=== PATIENT | female | born 1995 | race Caucasian/White ===

== ENCOUNTER 2018-07-21 08:39 | Emergency (ER) | payer SELFPAY ==
[2018-07-21 08:57] VITALS: BP 109/78; PULSE 119; TEMP 98.7; BMI 24.2
--- NOTE | 2018-07-21 09:30 | PDOC ---
History of Present Illness - General Chief Complaint: Psychiatric Stated Complaint: PSYCHIATRIC Time Seen by Provider: 07/21/18 09:01 - History of Present Illness Initial Comments: Venus Ryan is a 23yo woman with a PMH of depression who was brought to the ED by her family for continued symptoms of depression. They report that they are concerned because she has not been eating or sleeping well and does not want to go out. They would like her to start seeing a psychologist or psychiatrist. Per Venus, interviewed via kier operator phone, she was previously diagnosed with depression and given medication. She took the meds initially, but they made her feel hyper and she stopped taking them. She did not follow up with her psychiatrist nor inform him about the side effects. Her family report that there was a period of time over the summer when she was "crazy" and going out frequently, drinking excessively; Venus endorses this as well. She does not remember how long the episode lasted. Venus reports previous attempt to harm herself with excess drinking but denies any active intent to harm herself, suicidal ideation, or intent to harm others. She reports that she is interested in receiving treatment but currently lives in [place] and is only here visiting family. Past History - Past Medical History Allergies/Adverse Reactions: Allergies Allergy/AdvReac Type Severity Reaction Status Date / Time No Known Allergies Allergy Verified 07/21/18 08:48 CVA: No COPD: No Psychiatric Problems: Yes (anxiety and depression) - Immunization History Immunization Up to Date: Yes - Suicide/Smoking/Psychosocial Hx Smoking History: Never smoked Hx Alcohol Use: No Drug/Substance Use Hx: No Review of Systems - Review of Systems Comments:: General: No fevers, no chills, +loss of appetite, no malaise HEENT: No changes in vision, no changes in hearing, no congestion, no sore throat CV: No chest pain, no palpitations, no LE edema Pulm: No SOB, no cough, no wheezing GI: No nausea or vomiting, no change in bowel habits, no melena : No frequency, no urgency, no dysuria Musc: No back pain, no joint swelling, no recent injury Skin: No rash, no lesions, no erythema Endo: No excessive thirst, no heat/cold intolerance Heme: No unusual bruising or bleeding, no swollen glands Neuro: No syncope, no numbness/tingling, no focal weakness Vasc: No claudication Psych: +Depressed mood, poor appetite, disrupted sleep. No visual *Physical Exam - Vital Signs Last Vital Signs Temp Pulse Resp BP Pulse Ox 98.7 F 119 H 16 109/78 100 07/21/18 08:51 07/21/18 08:51 07/21/18 08:51 07/21/18 08:51 07/21/18 08:51 - Physical Exam Comments: General: Comfortable, no acute distress HEENT: PERRL, EOMI, MMM, voice normal, normal neck ROM, no LAD Cards: RRR, no murmur appreciated Pulm: Comfortable on room air, clear to auscultation bilaterally Abd: Soft, nontender, nondistended Ext: Atraumatic. No LE edema. ROM intact. Strength 5/5 and equal bilaterally Vasc: Extremities WWP. Palpable radial and pedal pulses bilaterally Skin: Normal color, no rashes or lesions Neuro: A&Ox3, CN grossly intact, normal speech, motor/sensory grossly intact and symmetric Psych: Flat, unemotional Moderate Sedation - Procedure Monitoring Vital Signs: Procedure Monitoring Vital Signs Temperature 98.7 F 07/21/18 08:51 Pulse Rate 119 H 07/21/18 08:51 Respiratory Rate 16 07/21/18 08:51 Blood Pressure 109/78 07/21/18 08:51 O2 Sat by Pulse Oximetry (%) 100 07/21/18 08:51 Medical Decision Making - Medical Decision Making 07/21/18 10:41 Venus Ryan is a 23yo woman with a PMH of depression, not currently taking her medications, who presents with depressed mood and symptoms suggestive of MDD, however she also notes periods with increased energy and could have undiagnosed bipolar disorder. - Currently no thoughts of harming herself, suicidal ideation, or thoughts of harming others - Recommending follow-up with a psychiatrist and/or psychologist for symptoms - Will refer to local psychiatrists. Venus is from [place], however, and prefers to follow up near her home - Urine preg, Utox ordered for evaluation. - D/C home with referral to psych. Seen and discussed with Dr Rodas. Micheline Amato PYG1 *DC/Admit/Observation/Transfer Diagnosis at time of Disposition: Depression - Discharge Dispostion Disposition: HOME Condition at time of disposition: Stable Decision to Admit order: No - Referrals Referrals: Sin Russ MD [Staff Physician] - Miranda Maier MD [Staff Physician] - Annita Morin MD [Staff Physician] - Claudia Stuart MD [Staff Physician] - Nemo Busch [Staff Physician] - Janet Sevilla MD [Staff Physician] - Mireille Sanders MD [Staff Physician] - Dre Kumar [Other Staff,non-medical] - Feli Chong MD [Staff Physician] - Delmar Vasquez MD [Staff Physician] - - Patient Instructions Printed Discharge Instructions: Depression, Bipolar Disorder, DI for Depression -- Adult, DI for Bipolar Disorder Additional Instructions: Discharge Instructions: You were seen in the emergency department with symptoms of depression. You also report symptoms that sound like suzette, which may mean that you have bipolar disorder rather than major depression. You will need to follow up with a psychiatrist and possibly also a psychologist (therapist) for continued management. You have been provided a list of doctors you can follow up with in the [place] area, but you are free to follow up with any doctor you wish. However, given your severe symptoms you should see a psychiatrist as soon as possible. Please seek immediate care at the nearest emergency department if you feel that you are going to hurt yourself, have thoughts of suicide, or feel that you might harm anyone else. Print Language: MAURITANIAN - Post Discharge Activity
--- NOTE | 2018-07-21 09:53 | PDOC ---
Attending Attestation - Resident Resident Name: Micheline Amato - ED Attending Attestation I have performed the following: I have examined & evaluated the patient, The case was reviewed & discussed with the resident, I agree w/resident's findings & plan - HPI HPI: 07/21/18 09:50 23 YOF with h/o depression presenting with increased depression, associated with poor sleep and appetite x 8 months previously on antidepressant, does not recall name, stopped taking it on her own. currently no psychiatrist or psychologist. no smoking drugs or alcohol. h/o suicide attempt by taking unknown pills ~several months ago. 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 PERRL, EOMI, MMM, nl conjunctiva, anicteric ; neck supple. lungs clear, +tachycardic. abdomen soft nontender. GUILLEN x4, no focal neuro deficits. No peripheral edema. normal color for ethnicity, WWP. no castellanos on skins. - Medical Decision Making 07/21/18 09:52 see hpi as documented vs with tachycardia, appears blunted and mildy anxious, slow to respond. no acute SI or HI. but does have h/o attempts offered anxiolytic, but declined. does not appear toxic, no fever or other systemic sx. doubt withdrawal, not taking drugs/etoh or anything that can precipitate no cp or sob. Upreg neg, Utox_neg Psych referrals provided, as pt requests, but no acute sx to warrant emergent psych eval. has support system, here with system, looking forward to referrals so she can resume her meds and get care for her chronic depression.. no acute SI or HI at this time, asked several times. safe at home. no acute danger to self or others. eager for discharge, with her sister. dispo: DC with psych followup, referrals given. s/s of acute changes, SI/ attempts, abnormal thoughts or behavior or danger to self, return to ED for eval. 07/21/18 12:23 07/21/18 12:25 07/21/18 12:26 07/21/18 12:27
[2018-07-21 11:24] LABS: HCG,QUALITATIVE URINE Negative
[2018-07-21 11:38] LABS: URINE APPEARANCE CLOUDY; URINE BILIRUBIN NEGATIVE (<2.0 mg/dL); URINE COLOR AMBER; URINE GLUCOSE (UA) NEGATIVE (NEGATIVE); URINE KETONE 2+ (NEGATIVE); URINE LEUK ESTERASE 3+ (NEGATIVE); URINE NITRITE NEGATIVE (NEGATIVE); URINE PROTEIN 2+ (NEGATIVE)
[2018-07-21 11:44] LABS: EPI CELLS MANY /HPF (FEW); URINE BACTERIA MANY /hpf (NONE SEEN); URINE MUCUS MANY
[2018-07-21 11:47] LABS: COCAINE, UR NEGATIVE ng/ml (CUTOFF=300); METHADONE, UR NEGATIVE ng/ml (CUTOFF=300); OPIATES, URI NEGATIVE ng/ml (CUTOFF=300); PHENCYCLIDINE,URINE NEGATIVE ng/ml (CUTOFF=25); URINE AMPHETAMINES NEGATIVE ng/ml (CUTOFF=500); URINE BARBITURATES NEGATIVE ng/ml (CUTOFF=200); URINE BENZODIAZEPINES NEGATIVE ng/ml (CUTOFF=200)
== END 2018-07-21 11:25 | disposition home or self-care (01) ==
LOC: JER 08:39
DX: F41.8 Other specified anxiety disorders (principal)
CPT/HCPCS: 80307; 81003; 81015; 84703; 99281-25